=== PATIENT | female | born 1950 | race Caucasian/White ===

== ENCOUNTER → 2018-08-23 10:13 | Outpatient (CLI) | payer MEDICARE, BC ==
[2016-05-19 11:21] VITALS: BMI 24.9
[~2018-08-23 10:13] MED LIST: ACETAMINOPHEN325 MG PO; BIOTIN5 MG PO; CARAFATE1 G PO; CYMBALTA30 MG PO; DEXILANT60 MG PO; ESTROGEL50 GM TP; FOLIC ACID1 MG PO; LIMBREL 500 MG500 MG PO; Lortab Liquid PO; METHOTREXATE2.5 MG PO; NORVASC5 MG PO; PEPCID40 MG PO; PLAQUENIL200 MG PO; PROVERA2.5 MG PO; SINGULAIR10 MG PO; SYNTHROID137 MCG PO; VAGIFEM10 MCG VG; ZANTAC150 MG PO
== END | disposition home or self-care (01) ==
LOC: EDSTATUS 10:00 → D.OPS 10:00
DX: K21.9 Gastro-esophageal reflux disease without esophagitis (principal); Z01.812 Encounter for preprocedural laboratory examination

== ENCOUNTER 2018-12-19 07:56 | Day surgery (SDC) | payer MEDICARE, BC ==
[2018-12-18 15:34] LABS: HEMATOCRIT 38.1 % (36.0-48.0); HEMOGLOBIN 13.1 g/dL (12-16); MCH 35.9 pg (26.0-34.0); MCHC 34.4 g/dL (31.0-37.0); MCV 104.4 fL (80.0-100.0); MEAN PLATELET VOLUME 10.3 fL (7.4-10.4); RBC 3.65 10x6/uL (4.00-5.40); RDW 12.9 % (11.5-14.5); WBC 5.2 10x3/uL (4.8-10.8)
[~2018-12-19] VITALS: Ht 162.6 cm; Wt 61.7 kg
[~2018-12-19 07:56] MED LIST changes: +ARNICA PO; +ASPIRIN EC81 M1 PO; +AVAPRO150 MG PO; +CELEBREX200 MG PO; +CLARITIN 10 MG10 MG PO; +METHOTREXATE INJ; +PROTONIX40 MG PO
[2018-12-19 08:29] VITALS: BP 104/70; Ht 162.6 cm; Wt 61.7 kg
[2018-12-19] MEDS ORDERED: HYDROCODON-ACE1 EAC7 PO (12:07)
[2018-12-19] MEDS ORDERED: CYCLOBENZAPRINE10 MG PO (12:08)
--- NOTE | 2018-12-19 18:44 | OP ---
PATIENT NAME: VIOLETA DUQUE MEDICAL RECORD: [id number] :48 LOCATION:D.OPS ADMISSION DATE: SURGEON: EDIN SUN MD DATE OF OPERATION: 12/19/2018 SURGEON: Edin Sun MD PREOPERATIVE DIAGNOSIS: Incisional hernia, left flank. POSTOPERATIVE DIAGNOSIS: Incisional hernia, left flank. PROCEDURE PERFORMED: Incisional hernia repair with mesh. ANESTHESIA: General. COMPLICATIONS: None. SPECIMENS: None. Case was clean. OPERATIVE COURSE: After consent was obtained, the patient was taken to the operating room and placed in the supine position on the operating table. General anesthesia was given. The patient was then placed into the right lateral decubitus position. The left flank was prepped and draped in typical sterile fashion. Ioban dressing was placed. A 20 cc of lidocaine were administered into the subcutaneous tissue. The previous incision was opened using a 10-blade scalpel. Dissection continued through subcutaneous tissue until the hernia defect was encountered. The hernia sac was identified and meticulously dissected using sharp scissor dissection and electrocautery. The hernia sac was excised in whole. The hernia defect was approximately 4 cm x 4 cm. The small bowel and colon were reduced through the hernia defect. They were meticulously inspected. No evidence of serosal injury, no evidence of bowel injury. At this time, a Ventrio ST 8 cm mesh was used. It was secured in all 4 quadrants using 0 Prolene suture, was then placed in the abdominal cavity and secured. A 3 interrupted [id number] were then used to close the primary hernia defect incorporating the anterior surface of the mesh. Next, the subcutaneous tissue was irrigated and suctioned. A skin incision was closed with 4-0 Stratafix. At the end of the case, all needle and instrument correct. No complications occurred. The patient extubated and transferred to PACU in stable condition. TRANSINT:[id number] Voice Confirmation ID: [id number] DOCUMENT ID: [id number] EDIN SUN MD at 1844 CC: [id number] DICTATION DATE: 12/19/18 1214 GAME DESIGN INSTRUCTOR: 12/19/18 1243 [id number] [place] [id number]
== END 2018-12-19 18:35 | disposition home or self-care (01) ==
LOC: D.OPS 07:56 → D.PAN 10:20 → D.OPS 10:45 → D.PAN 11:30 → D.OPS 18:35
PROVIDERS: Anesthesiology
DX: K43.2 Incisional hernia without obstruction or gangrene (principal); Z01.812 Encounter for preprocedural laboratory examination